=== PATIENT | female | born 1995 | race Caucasian/White ===

== ENCOUNTER 2017-10-22 17:52 | Emergency (ER) | payer BC ==
[2017-10-22 19:29] LABS: CHLORIDE,CL 107 mmol/L (98-110); SODIUM,NA 138 mmol/L (136-146)
--- NOTE | 2017-10-22 20:34 | EDM.PDOC ---
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 Past medical history: As per history of present illness and as reviewed below otherwise noncontributory. Surgical history: As per history of present illness and as reviewed below otherwise noncontributory. Social history: No reported history of drug or alcohol abuse. Family history: As per history of present illness and as reviewed below otherwise noncontributory. Physical exam: alert and oriented female answering questions HEENT: Atraumatic, normocehpalic, pupils reactive, negative for conjunctival pallor or scleral icterus, mucous membranes moist, throat clear, neck supple, nontender, trachea midline. Lungs: Clear to auscultation, breath sounds equal bilaterally, chest non tender. Heart: S1S2, regular, negative for clicks, rubs, or JVD. Abdomen: Soft, nondistended, nontender. Negative for masses or hepatossplenmegaly. Negative for costovertebral tenderness. Pelvis: Stable nontender. Genitourinary: Deferred. Rectal: Deferred Extremities: Atraumatic, negative for cords or calf pain. Neurovascular unremarkable. Neuro: Awake, alert, oriented. Cranial nerves II through XII unremarkable. Cerebellum unremarkable. Motor and sensory unremarkable throughout. Exam nonfocal. Discussed the results with the patient Diagnostics: []Ultrasound, CBC, ABO Rh Therapeutics: [] Impression: [Viable ] Plan: [Discharged to home Symptomatic cares reviewed ABO Rh is B+] Follow-up with your primary care provider establish with your CHASER APPRENTICE Definitive disposition and diagnosis as appropriate pending reevaluation and review of above. Onset: Today, Sudden Duration: Hour(s): Location: Reports: Pelvis - Related Data Allergies Allergy/AdvReac Type Severity Reaction Status Date / Time No Known Allergies Allergy Verified 10/22/17 18:26 Home Meds: Home Meds . [No Known Home Meds] 10/22/17 [History] Past Medical History - Past Health History Medical/Surgical History: Denies Medical/Surgical History Social & Family History - Tobacco Use Smoking Status *Q: Never Smoker Second Hand Smoke Exposure: No - Caffeine Use Caffeine Use: Reports: Soda, Tea - Recreational Drug Use Recreational Drug Use: No ED ROS GENERAL - Review of Systems Review Of Systems: ROS reveals no pertinent complaints other than HPI. ED EXAM - Physical Exam Exam: See Below (See dictation) Course - Vital Signs Last Recorded V/S: Last Vital Signs Temp 36.3 C 10/22/17 18:31 Pulse 100 10/22/17 18:31 Resp 18 10/22/17 18:31 BP 119/56 L 10/22/17 18:31 Pulse Ox 100 10/22/17 18:31 - Orders/Labs/Meds Orders: Active Orders 24 hr Category Date Time Status OB Transvaginal [US] Stat Exams 10/22/17 18:38 Taken Labs: Laboratory Tests 10/22/17 10/22/17 10/22/17 Range/Units 18:55 18:55 18:55 WBC 11.42 H (4.0-11.0) K/uL RBC 4.40 (4.30-5.90) M/uL Hgb 13.4 (12.0-16.0) g/dL Hct 39.0 (36.0-46.0) % MCV 88.6 (80.0-98.0) fL MCH 30.5 (27.0-32.0) pg MCHC 34.4 (31.0-37.0) g/dL RDW Std Deviation 39.8 (28.0-62.0) fl RDW Coeff of Avi 12 (11.0-15.0) % Plt Count 241 (150-400) K/uL MPV 9.40 (7.40-12.00) fL Neut % (Auto) 76.6 (48.0-80.0) % Lymph % (Auto) 17.5 (16.0-40.0) % [place] % (Auto) 4.8 (0.0-15.0) % Eos % (Auto) 0.7 (0.0-7.0) % Baso % (Auto) 0.4 (0.0-1.5) % Neut # (Auto) 8.7 H (1.4-5.7) K/uL Lymph # (Auto) 2.0 (0.6-2.4) K/uL [place] # (Auto) 0.6 (0.0-0.8) K/uL Eos # (Auto) 0.1 (0.0-0.7) K/uL Baso # (Auto) 0.1 (0.0-0.1) K/uL Nucleated RBC % 0.0 /100WBC Nucleated RBCs # 0 K/uL Sodium 138 (136-146) mmol/L Potassium 3.7 (3.5-5.1) mmol/L Chloride 107 (98-110) mmol/L Carbon Dioxide 21 (21-31) mmol/L BUN 9 (6.0-23.0) mg/dL Creatinine 0.7 (0.6-1.5) mg/dL Est Cr Clr Drug Dosing 101.39 mL/min Estimated GFR (MDRD) > 60.0 ml/min Glucose 78 (60-110) mg/dL Calcium 9.5 (8.8-10.8) mg/dL Total Bilirubin 0.4 (0.1-1.5) mg/dL AST 17 (5-40) IU/L ALT 12 (8-54) IU/L Alkaline Phosphatase 50 (40-150) Total Protein 7.8 (6.0-8.0) g/dL Albumin 4.9 (3.5-5.0) g/dL Globulin 2.9 (2.0-3.5) g/dL Albumin/Globulin Ratio 1.7 (1.3-2.8) HCG, Quant 48857.3 mIU/mL Urine Color Urine Appearance Urine pH (5.0-8.0) Ur Specific [place] (1.001-1.035) Urine Protein (NEGATIVE) mg/dL Urine Glucose (UA) (NEGATIVE) mg/dL Urine Ketones (NEGATIVE) mg/dL Urine Occult Blood (NEGATIVE) Urine Nitrite (NEGATIVE) Urine Bilirubin (NEGATIVE) Urine Urobilinogen (<2.0) EU/dL Ur Leukocyte Esterase (NEGATIVE) Urine RBC (0-2/HPF) Urine WBC (0-5/HPF) Ur Epithelial Cells (NONE-FEW) Urine Bacteria (NEGATIVE) Blood Type B POSITIVE 10/22/17 Range/Units 19:13 WBC (4.0-11.0) K/uL RBC (4.30-5.90) M/uL Hgb (12.0-16.0) g/dL Hct (36.0-46.0) % MCV (80.0-98.0) fL MCH (27.0-32.0) pg MCHC (31.0-37.0) g/dL RDW Std Deviation (28.0-62.0) fl RDW Coeff of Avi (11.0-15.0) % Plt Count (150-400) K/uL MPV (7.40-12.00) fL Neut % (Auto) (48.0-80.0) % Lymph % (Auto) (16.0-40.0) % [place] % (Auto) (0.0-15.0) % Eos % (Auto) (0.0-7.0) % Baso % (Auto) (0.0-1.5) % Neut # (Auto) (1.4-5.7) K/uL Lymph # (Auto) (0.6-2.4) K/uL [place] # (Auto) (0.0-0.8) K/uL Eos # (Auto) (0.0-0.7) K/uL Baso # (Auto) (0.0-0.1) K/uL Nucleated RBC % /100WBC Nucleated RBCs # K/uL Sodium (136-146) mmol/L Potassium (3.5-5.1) mmol/L Chloride (98-110) mmol/L Carbon Dioxide (21-31) mmol/L BUN (6.0-23.0) mg/dL Creatinine (0.6-1.5) mg/dL Est Cr Clr Drug Dosing mL/min Estimated GFR (MDRD) ml/min Glucose (60-110) mg/dL Calcium (8.8-10.8) mg/dL Total Bilirubin (0.1-1.5) mg/dL AST (5-40) IU/L ALT (8-54) IU/L Alkaline Phosphatase (40-150) Total Protein (6.0-8.0) g/dL Albumin (3.5-5.0) g/dL Globulin (2.0-3.5) g/dL Albumin/Globulin Ratio (1.3-2.8) HCG, Quant mIU/mL Urine Color YELLOW Urine Appearance CLEAR Urine pH 7.0 (5.0-8.0) Ur Specific [place] 1.020 (1.001-1.035) Urine Protein NEGATIVE (NEGATIVE) mg/dL Urine Glucose (UA) NEGATIVE (NEGATIVE) mg/dL Urine Ketones NEGATIVE (NEGATIVE) mg/dL Urine Occult Blood MODERATE (NEGATIVE) Urine Nitrite NEGATIVE (NEGATIVE) Urine Bilirubin NEGATIVE (NEGATIVE) Urine Urobilinogen 0.2 (<2.0) EU/dL Ur Leukocyte Esterase NEGATIVE (NEGATIVE) Urine RBC 0-1 (0-2/HPF) Urine WBC 0-1 (0-5/HPF) Ur Epithelial Cells OCCASIONAL (NONE-FEW) Urine Bacteria RARE (NEGATIVE) Blood Type Departure - Departure Time of Disposition: 20:36 Disposition: Home, Self-Care 01 Condition: Good Clinical Impression: Intrauterine - Discharge Information Referrals: Ashia Jacinto CNM [Primary Care Provider] - Forms: ED Department Discharge Additional Instructions: The following information is given to patients seen in the emergency department who are being discharged to home. This information is to outline your options for follow-up care. We provide all patients seen in our emergency department with a follow-up referral. The need for follow-up, as well as the timing and circumstances, are variable depending upon the specifics of your emergency department visit. If you don't have a primary care physician on staff, we will provide you with a referral. We always advise you to contact your personal physician following an emergency department visit to inform them of the circumstance of the visit and for follow-up with them and/or the need for any referrals to a consulting specialist. The emergency department will also refer you to a specialist when appropriate. This referral assures that you have the opportunity for followup care with a specialist. All of these measure are taken in an effort to provide you with optimal care, which includes your followup. Under all circumstances we always encourage you to contact your private physician who remains a resource for coordinating your care. When calling for followup care, please make the office aware that this follow-up is from your recent emergency room visit. If for any reason you are refused follow-up, please contact the [facility] emergency department at and asked to speak to the emergency department charge nurse. SHe has a viable uterine at this time YUN 05/24/18 Displacing you at 8 weeks and 3 days into your Please establish with your primary care provider and CHASER APPRENTICE for further cares Continue with your vitamins - My Orders Last 24 Hours: My Active Orders 10/22/17 18:38 OB Transvaginal [US] Stat - Assessment/Plan Last 24 Hours: My Active Orders 10/22/17 18:38 OB Transvaginal [US] Stat
--- NOTE | 2017-10-24 15:40 | US ---
EXAM DATE: 10/22/17 PATIENT'S AGE: 22 Patient: MAGNO CONWAY Facility: [place], [place] Site . Site : 1995 Study: US OB Pelvis [id number]/22/2017 7:54:15 PM Ordering Physician: Doctor Orr Final Report: INDICATION: Early , vaginal bleeding. TECHNIQUE: Ultrasound OB pelvis transvaginal. Real time guzman scale imaging of the pelvis was performed. COMPARISON: None FINDINGS: Sonographic imaging demonstrates a single intrauterine gestation. The embryo demonstrates a regular cardiac rate measuring 184 beats per minute. The embryo` s crown rump length measurement of 25.6 mm corresponds to a gestational age of 9 weeks 3 days. Yolk sac is not identified. Subchorionic hemorrhage, measuring 2.7 x 1.6 centimeters. The cervix is closed. Bilateral anechoic ovarian cysts. Largest left ovarian cyst measures 6.3 centimeters. Right ovarian cyst measures 3.1 centimeters. IMPRESSION: 1. Single viable intrauterine with an estimated gestational age of 9 weeks 3 days. Current ultrasound YUN 05/24/2018. 2. Subchorionic hemorrhage in the lower uterine segment near the internal os, measuring 2.7 centimeters. 3. Bilateral simple ovarian cysts. Largest cyst within the left ovary, measuring 6.3 centimeters. 4. No significant free pelvic fluid. Dictated by Elliott Jara MD @ 10/22/2017 8:28:16 PM Dictated by: Elliott Jara MD @ 10/22/2017 20:28:25 (Electronic Signature) Report Signed by Proxy. [facility]
== END 2017-10-22 20:55 | disposition home or self-care (01) ==
LOC: MW.ED 17:52
DX: O20.9 Hemorrhage in early pregnancy, unspecified (principal); Z3A.09 9 weeks gestation of pregnancy
CPT/HCPCS: 36415; 76817; 76817-26; 80053; 81001; 84702; 85025; 86900; 86901; 99283; 99284-25

== ENCOUNTER 2017-10-29 21:40 | Emergency (ER) | payer BC ==
--- NOTE | 2017-10-29 22:03 | EDM.PDOC ---
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 Past medical history: As per history of present illness and as reviewed below otherwise noncontributory. Surgical history: As per history of present illness and as reviewed below otherwise noncontributory. Social history: No reported history of drug or alcohol abuse. Family history: As per history of present illness and as reviewed below otherwise noncontributory. Physical exam: HEENT: Atraumatic, normocephalic, pupils reactive, negative for conjunctival pallor or scleral icterus, mucous membranes moist, throat clear, neck supple, nontender, trachea midline. Lungs: Clear to auscultation, breath sounds equal bilaterally, chest nontender. Heart: S1S2, regular, negative for clicks, rubs, or JVD. Abdomen: Soft, nondistended, nontender. Negative for masses or hepatosplenomegaly. Negative for costovertebral tenderness. Pelvis: Stable nontender. Genitourinary: Deferred. Rectal: Deferred. Extremities: Atraumatic, negative for cords or calf pain. Neurovascular unremarkable. Neuro: Awake, alert, oriented. Cranial nerves II through XII unremarkable. Cerebellum unremarkable. Motor and sensory unremarkable throughout. Exam nonfocal. Diagnostics: CBC quantitative beta-hCG Therapeutics: None Impression: #1 first trimester bleeding Definitive disposition and diagnosis as appropriate pending reevaluation and review of above. - Related Data Allergies Allergy/AdvReac Type Severity Reaction Status Date / Time No Known Allergies Allergy Verified 10/29/17 21:57 Home Meds: Home Meds #103/Iron Fumarate/Fa [ ] 1 tab PO DAILY 10/29/17 [ History] Past Medical History - Past Health History Medical/Surgical History: Denies Medical/Surgical History Social & Family History - Tobacco Use Smoking Status *Q: Never Smoker Second Hand Smoke Exposure: No - Caffeine Use Caffeine Use: Reports: Soda, Tea - Recreational Drug Use Recreational Drug Use: No ED ROS GENERAL - Review of Systems Review Of Systems: ROS reveals no pertinent complaints other than HPI. ED EXAM, GENERAL - Physical Exam Exam: See Below (dictation) Course - Vital Signs Last Recorded V/S: Last Vital Signs Temp 37.7 C 10/29/17 21:40 Pulse 116 H 10/29/17 21:40 Resp 18 10/29/17 21:40 BP 119/70 10/29/17 21:40 Pulse Ox 100 10/29/17 21:40 - Orders/Labs/Meds Labs: Laboratory Tests 10/29/17 10/29/17 Range/Units 22:11 22:11 WBC 8.31 (4.0-11.0) K/uL RBC 4.20 L (4.30-5.90) M/uL Hgb 12.8 (12.0-16.0) g/dL Hct 36.7 (36.0-46.0) % MCV 87.4 (80.0-98.0) fL MCH 30.5 (27.0-32.0) pg MCHC 34.9 (31.0-37.0) g/dL RDW Std Deviation 39.6 (28.0-62.0) fl RDW Coeff of Avi 12 (11.0-15.0) % Plt Count 211 (150-400) K/uL MPV 9.70 (7.40-12.00) fL Neut % (Auto) 67.4 (48.0-80.0) % Lymph % (Auto) 26.6 (16.0-40.0) % [place] % (Auto) 4.2 (0.0-15.0) % Eos % (Auto) 1.4 (0.0-7.0) % Baso % (Auto) 0.4 (0.0-1.5) % Neut # (Auto) 5.6 (1.4-5.7) K/uL Lymph # (Auto) 2.2 (0.6-2.4) K/uL [place] # (Auto) 0.4 (0.0-0.8) K/uL Eos # (Auto) 0.1 (0.0-0.7) K/uL Baso # (Auto) 0.0 (0.0-0.1) K/uL Nucleated RBC % 0.0 /100WBC Nucleated RBCs # 0 K/uL HCG, Quant 384193.4 mIU/mL Departure - Departure Time of Disposition: 23:05 Disposition: Home, Self-Care 01 Condition: Good Clinical Impression: Threatened - Discharge Information Referrals: Ashia Jacinto CNM [Primary Care Provider] - Forms: ED Department Discharge Additional Instructions: The following information is given to patients seen in the emergency department who are being discharged to home. This information is to outline your options for follow-up care. We provide all patients seen in our emergency department with a follow-up referral. The need for follow-up, as well as the timing and circumstances, are variable depending upon the specifics of your emergency department visit. If you don't have a primary care physician on staff, we will provide you with a referral. We always advise you to contact your personal physician following an emergency department visit to inform them of the circumstance of the visit and for follow-up with them and/or the need for any referrals to a consulting specialist. The emergency department will also refer you to a specialist when appropriate. This referral assures that you have the opportunity for followup care with a specialist. All of these measure are taken in an effort to provide you with optimal care, which includes your followup. Under all circumstances we always encourage you to contact your private physician who remains a resource for coordinating your care. When calling for followup care, please make the office aware that this follow-up is from your recent emergency room visit. If for any reason you are refused follow-up, please contact the [facility] emergency department at and asked to speak to the emergency department charge nurse. Vaginal rest follow-up TRANSITIONS RN CARE COORDINATOR: Schedule appointment return as needed as discussed
== END 2017-10-29 23:26 | disposition home or self-care (01) ==
LOC: MW.ED 21:40
DX: O20.0 Threatened abortion (principal)
CPT/HCPCS: 36415; 84702; 85025; 99282; 99283

== ENCOUNTER 2020-02-01 00:10 | Inpatient (IN) | payer BC ==
[2020-02-01] MEDS ORDERED: Sodium Chloride 0.9% 2.5 ML Syringe FLUSH PRN (00:20)
[2020-02-01] MEDS ORDERED: Terbutaline 1 MG/ML SDV SUBCUT PRN (00:20)
[2020-02-01] MEDS ORDERED: Carboprost Tromethamine 250 MCG/1 ML Amp IM PRN (00:20)
[2020-02-01] MEDS ORDERED: Misoprostol 25 MCG (1/4 of 100 MCG) Tab VAG PRN (00:20)
[2020-02-01] MEDS ORDERED: Butorphanol 1 MG/ML SDV IVPUSH PRN (00:20)
[2020-02-01] MEDS ORDERED: Methylergonovine 0.2 MG/1 ML Amp IM PRN (00:20)
[2020-02-01] MEDS ORDERED: Tranexamic Acid 1,000 MG in Sodium Chloride 0.9% 100 ML IV PRN (00:20)
[2020-02-01] MEDS ORDERED: Lidocaine 1% 50 ML MDV INJECT PRN (00:20)
[2020-02-01] MEDS ORDERED: Nalbuphine 10 MG/1 ML Vial IVPUSH PRN (00:20)
[2020-02-01] MEDS ORDERED: Sodium Chloride 0.9% 10 ML Syringe FLUSH PRN (00:20)
[2020-02-01] MEDS ORDERED: Ondansetron 4 MG/2 ML SDV IVPUSH PRN (00:20)
[2020-02-01] MEDS ORDERED: Sodium Chloride 0.9% 10 ML SDV IV PRN (00:20)
[2020-02-01] MEDS ORDERED: Misoprostol 200 MCG Tab PO PRN (00:20)
[2020-02-01] MEDS ORDERED: Misoprostol 25 MCG (1/4 of 100 MCG) Tab PO PRN ×2 (00:20)
[2020-02-01] MEDS ORDERED: Water For Irrigation,Sterile 1,000 ML Container IRR PRN (00:20)
[2020-02-01] MEDS ORDERED: Oxytocin/0.9 % Sodium Chloride 30 UNIT/500 ML BAG IV SCH ×2 (00:30)
[2020-02-01] MEDS: Misoprostol 25 MCG (1/4 of 100 MCG) Tab VAG PRN ×2 (01:28→05:33)
[2020-02-01] MEDS: Lactated Ringers 1,000 ML IV SCH ×2 (06:10→12:51)
--- NOTE | 2020-02-01 08:55 | PCM.LDHP ---
L&D History of Present Illness - General Date of Service: 02/01/20 Admit Problem/Dx: Patient Status Order with Admit Dx/Problem 02/01/20 00:21 Patient Status [ADT] Routine Admission Diagnosis/Problem Admission Diagnosis/Problem Arcelia is a 24 yo that presents today for IOL at 39.5 weeks gestation. B pos, RI, GBS negative. NKDA. Source of Information: Patient History Limitations: Reports: No Limitations - History of Present Illness Associated Symptoms: Reports: N - Related Data Allergies/Adverse Reactions: Allergies Allergy/AdvReac Type Severity Reaction Status Date / Time No Known Allergies Allergy Verified 02/01/20 01:10 Home Medications: Home Meds #103/Iron Fumarate/Fa [ ] 1 tab PO DAILY 10/29/17 [ History] Past Medical History - Past Health History Medical/Surgical History: Denies Medical/Surgical History HEENT History: Reports: None Cardiovascular History: Reports: None Respiratory History: Reports: None Gastrointestinal History: Reports: None Genitourinary History: Reports: None 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: , Spontaneous : 3 Para: 0 LMP (Approximate): > 3 Months Musculoskeletal History: Reports: None Neurological History: Reports: None Psychiatric History: Reports: None Endocrine/Metabolic History: Reports: None Hematologic History: Reports: None Immunologic History: Reports: None Dermatologic History: Reports: None - Infectious Disease History Infectious Disease History: Reports: None - Past Surgical History Female Surgical History: Reports: Other (See Below) (Ovarian cyst removal ( 2013)) Social & Family History - Family History Family Medical History: Noncontributory - Tobacco Use Smoking Status *Q: Never Smoker Second Hand Smoke Exposure: No - Caffeine Use Caffeine Use: Reports: Soda, Tea - Recreational Drug Use Recreational Drug Use: No H&P Review of Systems - Review of Systems: Review Of Systems: Comprehensive ROS is negative, except as noted in HPI. General: Reports: No Symptoms HEENT: Reports: No Symptoms Pulmonary: Reports: No Symptoms Cardiovascular: Reports: No Symptoms Gastrointestinal: Reports: No Symptoms Genitourinary: Reports: No Symptoms Musculoskeletal: Reports: No Symptoms Skin: Reports: No Symptoms Psychiatric: Reports: No Symptoms Neurological: Reports: No Symptoms Hematologic/Lymphatic: Reports: No Symptoms Immunologic: Reports: No Symptoms L&D Exam - Exam Exam: See Below - Vital Signs Weight: 172 lb - OB Specific Fundal Height In cm: 39 Movement: Active Heart Tones: Present Heart Tones per Min: 115 Heart Rate (FHR) Variability: Moderate (6-25 bmp) Presentation: Vertex - Eldridge Score Eldridge Score Effacement: 31-50% Eldridge Score Dilation: 1-2 cm Eldridge Score 's Station: -3 - Exam General: Alert, Oriented HEENT: Conjunctiva Clear, EACs Clear, EOMI, Hearing Intact, Mucosa Moist & [place] , Nares Patent, PERRLA Neck: Supple, Trachea Midline Lungs: Clear to Auscultation, Normal Respiratory Effort Cardiovascular: Regular Rate, Regular Rhythm GI/Abdominal Exam: Normal Bowel Sounds, Soft, Non-Tender, No Organomegaly, No Distention, Other (Gravid uterus) Rectal Exam: Deferred Genitourinary: Normal external exam, Other (Amniotic membranes intact) Back Exam: Normal Inspection, Full Range of Motion Extremities: Normal Inspection, Normal Range of Motion, Non-Tender, No Pedal Edema, Normal Capillary Refill Skin: Warm, Dry, Intact Neurological: Cranial Nerves Intact, Reflexes Equal Bilateral Psychiatric: Alert, Normal Affect, Normal Mood - Patient Data Lab Results Last 24 hrs: Laboratory Results - last 24 hr 02/01/20 02/01/20 Range/Units 00:55 00:55 WBC 10.36 (4.0-11.0) K/uL RBC 4.08 L (4.30-5.90) M/uL Hgb 11.5 L (12.0-16.0) g/dL Hct 35.1 L (36.0-46.0) % MCV 86.0 (80.0-98.0) fL MCH 28.2 (27.0-32.0) pg MCHC 32.8 (31.0-37.0) g/dL RDW Std Deviation 41.7 (28.0-62.0) fl RDW Coeff of Avi 14 (11.0-15.0) % Plt Count 261 (150-400) K/uL MPV 10.60 (7.40-12.00) fL Blood Type B POSITIVE Antibody Screen NEGATIVE Result Diagrams: 02/01/20 00:55 - Problem List (1) Elective induction of labor planned SNOMED Code(s): 058345954 ICD Code: [id number] - Status: Acute Priority: High Current Visit: Yes (2) related condition in third trimester SNOMED Code(s): 524975691 ICD Code: O26.93 - RELATED CONDITIONS, UNSPECIFIED, THIRD TRIMESTER Status: Acute Priority: High Current Visit: Yes (3) 39 weeks gestation of SNOMED Code(s): 11912871 ICD Code: Z3A.39 - 39 WEEKS GESTATION OF Status: Acute Priority : High Current Visit: Yes Problem List Initiated/Reviewed/Updated: Yes Orders Last 24hrs: Active Orders 24 hr Category Date Time Status Patient Status [ADT] Routine ADT 02/01/20 00:21 Active Bedrest Bathroom Privileges [RC] ASDIRECTED Care 02/01/20 00:21 Active Communication Order [RC] ASDIRECTED Care 02/01/20 00:21 Active Communication Order [RC] ASDIRECTED Care 02/01/20 00:21 Active Communication Order [RC] ASDIRECTED Care 02/01/20 00:21 Active Heart Tones [RC] CONTINUOUS Care 02/01/20 00:21 Active Non Stress Test [RC] PER UNIT ROUTINE Care 02/01/20 00:21 Active May Shower [RC] ASDIRECTED Care 02/01/20 00:21 Active Notify Provider [RC] PRN Care 02/01/20 00:21 Active Notify Provider [RC] PRN Care 02/01/20 00:21 Active Notify Provider [RC] PRN Care 02/01/20 00:21 Active Notify Provider [RC] STAT Care 02/01/20 00:21 Active Oxygen Therapy [RC] ASDIRECTED Care 02/01/20 00:21 Active Up ad Lola [RC] ASDIRECTED Care 02/01/20 00:21 Active Vaginal Exam [RC] PRN Care 02/01/20 00:21 Active Vaginal Exam [RC] PRN Care 02/01/20 00:21 Active Vital Signs [RC] PER UNIT ROUTINE Care 02/01/20 00:21 Active Vital Signs [RC] PER UNIT ROUTINE Care 02/01/20 00:21 Active Regular Diet [DIET] Diet 02/01/20 Breakfast Active RPR (SYPHILIS SERO) W/ RFLX [REF] Routine Lab 02/01/20 00:55 Received Butorphanol [Stadol] Med 02/01/20 00:20 Active 1 mg IVPUSH Q1H PRN Carboprost Tromethamine [Hemabate DS] Med 02/01/20 00:20 Active 250 mcg IM ASDIRECTED PRN Lactated Ringers [Ringers, Lactated] 1,000 ml Med 02/01/20 00:30 Active IV ASDIRECTED Lidocaine 1% [Xylocaine 1%] Med 02/01/20 00:20 Active 50 ml INJECT ONETIME PRN Methylergonovine [Methergine] Med 02/01/20 00:20 Active 0.2 mg IM ASDIRECTED PRN Nalbuphine [Nubain] Med 02/01/20 00:20 Active 10 mg IVPUSH Q1H PRN Ondansetron [Zofran] Med 02/01/20 00:20 Active 4 mg IVPUSH Q4H PRN Oxytocin/0.9 % Sodium Chloride [Oxytocin 30 Unit/500 ML Med 02/01/20 00:30 Active -NS] 30 unit in 500 ml IV TITRATE Oxytocin/0.9 % Sodium Chloride [Oxytocin 30 Unit/500 ML Med 02/01/20 00:30 Active -NS] 30 unit in 500 ml IV TITRATE Sodium Chloride 0.9% [Normal Saline] Med 02/01/20 00:20 Active 10 ml IV ASDIRECTED PRN Sodium Chloride 0.9% [Saline Flush] Med 02/01/20 00:20 Active 10 ml FLUSH ASDIRECTED PRN Sodium Chloride 0.9% [Saline Flush] Med 02/01/20 00:20 Active 2.5 ml FLUSH ASDIRECTED PRN Terbutaline [Brethine] Med 02/01/20 00:20 Active 0.25 mg SUBCUT ASDIRECTED PRN Tranexamic Acid [Cyklokapron] 1,000 mg Med 02/01/20 00:20 Active Sodium Chloride 0.9% [Normal Saline] 100 ml IV ONETIME Water For Irrigation,Sterile [Sterile Water for Med 02/01/20 00:20 Active Irrigation] 1,000 ml IRR ASDIRECTED PRN miSOPROStoL [Cytotec] Med 02/01/20 00:20 Active 200 mcg PO ONETIME PRN miSOPROStoL [Cytotec] Med 02/01/20 00:20 Active 25 mcg PO ONETIME PRN miSOPROStoL [Cytotec] Med 02/01/20 00:20 Active 25 mcg PO Q4H PRN miSOPROStoL [Cytotec] Med 02/01/20 00:20 Active 25 mcg VAG ONETIME PRN miSOPROStoL [Cytotec] Med 02/01/20 00:20 Active 25 mcg VAG Q4H PRN Scalp Electrode [WOMSER] Per Unit Routine Oth 02/01/20 00:21 Ordered Medication Administration Instruction [OM.PC] Q3H Oth 02/01/20 00:30 Ordered Peripheral IV Insertion Adult [OM.PC] Routine Oth 02/01/20 00:21 Ordered Resuscitation Status Routine Resus Stat 02/01/20 00:20 Ordered Medication Orders Butorphanol Tartrate (Stadol) 1 mg IVPUSH Q1H PRN PRN Reason: Pain Carboprost Tromethamine (Hemabate Ds) 250 mcg IM ASDIRECTED PRN PRN Reason: Post Hemorrhage Lactated Ringer's (Ringers, Lactated) 1,000 mls @ 150 mls/hr IV ASDIRECTED DAVON Last Admin: 02/01/20 06:10 Dose: 150 mls/hr Oxytocin/Sodium Chloride (Oxytocin 30 Unit/500 Ml-Ns) 30 unit in 500 mls @ 2 mls/hr IV TITRATE DAVON; Protocol Oxytocin/Sodium Chloride (Oxytocin 30 Unit/500 Ml-Ns) 30 unit in 500 mls @ 555 mls/hr IV TITRATE DAVON Tranexamic Acid 1,000 mg/ (Sodium Chloride) 110 mls @ 660 mls/hr IV ONETIME PRN PRN Reason: Bleeding Lidocaine HCl (Xylocaine 1%) 50 ml INJECT ONETIME PRN PRN Reason: Laceration repair Methylergonovine Maleate (Methergine) 0.2 mg IM ASDIRECTED PRN PRN Reason: Post Hemorrhage Misoprostol (Cytotec) 25 mcg VAG ONETIME PRN PRN Reason: Cervical Ripening Misoprostol (Cytotec) 25 mcg VAG Q4H PRN PRN Reason: Cervical Ripening Last Admin: 02/01/20 05:33 Dose: 25 mcg Admin: 02/01/20 01:28 Dose: 25 mcg Misoprostol (Cytotec) 200 mcg PO ONETIME PRN PRN Reason: Post Hemorrhage Misoprostol (Cytotec) 25 mcg PO ONETIME PRN PRN Reason: Cervical Ripening Last Admin: 02/01/20 01:28 Dose: 25 mcg Misoprostol (Cytotec) 25 mcg PO Q4H PRN PRN Reason: Cervical Ripening Last Admin: 02/01/20 05:33 Dose: 25 mcg Nalbuphine HCl (Nubain) 10 mg IVPUSH Q1H PRN PRN Reason: Pain (severe 7-10) Ondansetron HCl (Zofran) 4 mg IVPUSH Q4H PRN PRN Reason: Nausea/Vomiting Sodium Chloride (Saline Flush) 10 ml FLUSH ASDIRECTED PRN PRN Reason: Keep Vein Open Sodium Chloride (Saline Flush) 2.5 ml FLUSH ASDIRECTED PRN PRN Reason: Keep Vein Open Sodium Chloride (Normal Saline) 10 ml IV ASDIRECTED PRN PRN Reason: IV Use Sterile Water (Sterile Water For Irrigation) 1,000 ml IRR ASDIRECTED PRN PRN Reason: delivery Terbutaline Sulfate (Brethine) 0.25 mg SUBCUT ASDIRECTED PRN PRN Reason: Tacysystole Assessment/Plan Comment:: Continue with cytotec to pitocin IOL POC.
[2020-02-01] MEDS ORDERED: fentaNYL 100 MCG/2 ML SDV ONE (11:41)
[2020-02-01] MEDS ORDERED: Bupivicaine/fentaNYL/NS 250 ML ONE (11:42)
[2020-02-01] MEDS ORDERED: Bupivacaine 0.25% 10 ML SDV ONE (11:43)
--- NOTE | 2020-02-01 12:15 | PCM.PREANE ---
Preanesthetic Assessment - Anesthesia/Transfusion/Family Hx Anesthesia History: No Prior Anesthesia Family History of Anesthesia Reaction: No Transfusion History: No Prior Transfusion(s) - Review of Systems General: No Symptoms Pulmonary: No Symptoms Cardiovascular: No Symptoms Gastrointestinal: Abdominal Pain Neurological: No Symptoms Other: Reports: None - Physical Assessment Height: 5 ft 1.81 in Weight: 78.018 kg ASA Class: 2 Mental Status: Alert & Oriented x3 Airway Class: Mallampati = 2 Dentition: Reports: Normal Dentition Cardiovascular: Regular Rate - Lab Values: Laboratory Last Values WBC 10.36 K/uL (4.0-11.0) 02/01/20 00:55 RBC 4.08 M/uL (4.30-5.90) L 02/01/20 00:55 Hgb 11.5 g/dL (12.0-16.0) L 02/01/20 00:55 Hct 35.1 % (36.0-46.0) L 02/01/20 00:55 MCV 86.0 fL (80.0-98.0) 02/01/20 00:55 MCH 28.2 pg (27.0-32.0) 02/01/20 00:55 MCHC 32.8 g/dL (31.0-37.0) 02/01/20 00:55 RDW Std Deviation 41.7 fl (28.0-62.0) 02/01/20 00:55 RDW Coeff of Avi 14 % (11.0-15.0) 02/01/20 00:55 Plt Count 261 K/uL (150-400) 02/01/20 00:55 MPV 10.60 fL (7.40-12.00) 02/01/20 00:55 Blood Type B POSITIVE 02/01/20 00:55 Antibody Screen NEGATIVE 02/01/20 00:55 - Allergies Allergies/Adverse Reactions: Allergies Allergy/AdvReac Type Severity Reaction Status Date / Time No Known Allergies Allergy Verified 02/01/20 01:10 - Blood Blood Available: No - Anesthesia Plan Pre-Op Medication Ordered: None - Acknowledgements Anesthesia Type Planned: Epidural Pt an Appropriate Candidate for the Planned Anesthesia: Yes Alternatives and Risks of Anesthesia Discussed w Pt/Guardian: Yes Pt/Guardian Understands and Agrees with Anesthesia Plan: Yes PreAnesthesia Questionnaire - Past Health History Medical/Surgical History: Denies Medical/Surgical History HEENT History: Reports: None Cardiovascular History: Reports: None Respiratory History: Reports: None Gastrointestinal History: Reports: None Genitourinary History: Reports: None 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: , 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 Musculoskeletal History: Reports: None Neurological History: Reports: None Psychiatric History: Reports: None Endocrine/Metabolic History: Reports: None Hematologic History: Reports: None Immunologic History: Reports: None Dermatologic History: Reports: None - Infectious Disease History Infectious Disease History: Reports: None - Past Surgical History Female Surgical History: Reports: Other (See Below) (Ovarian cyst removal ( 2013)) - SUBSTANCE USE Smoking Status *Q: Never Smoker Second Hand Smoke Exposure: No Recreational Drug Use History: No - HOME MEDS Home Medications: Home Meds #103/Iron Fumarate/Fa [ ] 1 tab PO DAILY 10/29/17 [ History] - CURRENT (IN HOUSE) MEDS Current Meds: Current Medications Butorphanol Tartrate (Stadol) 1 mg IVPUSH Q1H PRN PRN Reason: Pain Last Admin: 02/01/20 11:03 Dose: 1 mg Carboprost Tromethamine (Hemabate Ds) 250 mcg IM ASDIRECTED PRN PRN Reason: Post Hemorrhage Lactated Ringer's (Ringers, Lactated) 1,000 mls @ 150 mls/hr IV ASDIRECTED DAVON Last Admin: 02/01/20 06:10 Dose: 150 mls/hr Oxytocin/Sodium Chloride (Oxytocin 30 Unit/500 Ml-Ns) 30 unit in 500 mls @ 2 mls/hr IV TITRATE DAVON; Protocol Oxytocin/Sodium Chloride (Oxytocin 30 Unit/500 Ml-Ns) 30 unit in 500 mls @ 555 mls/hr IV TITRATE DAVON Tranexamic Acid 1,000 mg/ (Sodium Chloride) 110 mls @ 660 mls/hr IV ONETIME PRN PRN Reason: Bleeding Lidocaine HCl (Xylocaine 1%) 50 ml INJECT ONETIME PRN PRN Reason: Laceration repair Methylergonovine Maleate (Methergine) 0.2 mg IM ASDIRECTED PRN PRN Reason: Post Hemorrhage Misoprostol (Cytotec) 25 mcg VAG ONETIME PRN PRN Reason: Cervical Ripening Misoprostol (Cytotec) 25 mcg VAG Q4H PRN PRN Reason: Cervical Ripening Last Admin: 02/01/20 05:33 Dose: 25 mcg Misoprostol (Cytotec) 200 mcg PO ONETIME PRN PRN Reason: Post Hemorrhage Misoprostol (Cytotec) 25 mcg PO ONETIME PRN PRN Reason: Cervical Ripening Last Admin: 02/01/20 01:28 Dose: 25 mcg Misoprostol (Cytotec) 25 mcg PO Q4H PRN PRN Reason: Cervical Ripening Last Admin: 02/01/20 05:33 Dose: 25 mcg Nalbuphine HCl (Nubain) 10 mg IVPUSH Q1H PRN PRN Reason: Pain (severe 7-10) Ondansetron HCl (Zofran) 4 mg IVPUSH Q4H PRN PRN Reason: Nausea/Vomiting Sodium Chloride (Saline Flush) 10 ml FLUSH ASDIRECTED PRN PRN Reason: Keep Vein Open Sodium Chloride (Saline Flush) 2.5 ml FLUSH ASDIRECTED PRN PRN Reason: Keep Vein Open Sodium Chloride (Normal Saline) 10 ml IV ASDIRECTED PRN PRN Reason: IV Use Sterile Water (Sterile Water For Irrigation) 1,000 ml IRR ASDIRECTED PRN PRN Reason: delivery Terbutaline Sulfate (Brethine) 0.25 mg SUBCUT ASDIRECTED PRN PRN Reason: Tacysystole Discontinued Medications Bupivacaine HCl (Sensorcaine-Mpf 0.25%) Confirm Administered Dose 10 ml .ROUTE .STK-MED ONE Stop: 02/01/20 11:44 Fentanyl (Sublimaze) Confirm Administered Dose 100 mcg .ROUTE .STK-MED ONE Stop: 02/01/20 11:42 Fentanyl/Bupivacaine HCl (Fentanyl/Bupivacaine/Ns 2 Mcg-0.125% 250 Ml) Confirm Administered Dose 250 mls @ as directed .ROUTE .STK-MED ONE Stop: 02/01/20 11:43
[2020-02-01] MEDS ORDERED: Witch Hazel Medicated Pads 40/Jar TOP PRN (14:57)
[2020-02-01] MEDS ORDERED: Acetaminophen 500 MG Tab PO PRN ×2 (14:57)
[2020-02-01] MEDS ORDERED: Bisacodyl 10 MG Supp RECTAL PRN (14:57)
[2020-02-01] MEDS ORDERED: Ibuprofen 800 MG Tab PO PRN (14:57)
[2020-02-01] MEDS ORDERED: Benzocaine/Menthol 20%-0.5% Spray 78 GM Cannister TOP PRN (14:57)
[2020-02-01] MEDS ORDERED: oxyCODONE 5 MG Tab PO PRN (14:57)
[2020-02-01] MEDS ORDERED: Ibuprofen 400 MG Tab PO PRN (14:57)
[2020-02-01] MEDS ORDERED: Lanolin 100% Cream 7 GM Tube TOP PRN (14:57)
[2020-02-01] MEDS ORDERED: Docusate Sodium 100 MG Cap PO PRN (14:57)
--- NOTE | 2020-02-02 07:27 | PCM48HPAN ---
Post Anesthesia Note - EVALUATION WITHIN 48HRS OF ANESTHETIC Vital Signs in Normal Range: Yes Patient Participated in Evaluation: Yes Respiratory Function Stable: Yes Airway Patent: Yes Cardiovascular Function Stable: Yes Hydration Status Stable: Yes Pain Control Satisfactory: Yes Nausea and Vomiting Control Satisfactory: Yes Mental Status Recovered: Yes Vital Signs: Last Vital Signs Temp 36.6 C 02/02/20 04:00 Pulse 91 02/02/20 04:00 Resp 16 02/02/20 04:00 BP 112/65 02/02/20 04:00 Pulse Ox 95 02/02/20 04:00 - COMMENTS/OBSERVATIONS Free Text/Narrative:: No problems post.
--- NOTE | 2020-02-02 09:01 | OR ---
SURGEON: Cade Ashford MD DATE OF PROCEDURE: 02/01/2020 DELIVERY NOTE: Ms. Paniagua is primigravida. She is 24. She is followed in our office primarily by me. The patient is 39 plus weeks. She was admitted at midnight of Saturday morning for elective induction. She was induced with Cytotec and she responded to it very well. She progressed to 4 to 5, and she had spontaneous rupture of the membranes with clear fluid, regular contraction every 3 to 4 minutes. heart rate was normal. The patient had epidural anesthesia for labor analgesia, and then she progressed without any problems. She was able to accomplish normal spontaneous vaginal delivery of a female fetus. One nuchal cord was noted. The fetus cried immediately. score reported to be 8 and 9. The weight is not available. There was no need for episiotomy. There was no perineal or labial laceration. The placenta delivered spontaneous, complete, and intact. Estimated blood loss 250 to 300 mL. There was no complication in the delivery or the labor process in this patient. ASHLEIGH / ELIZABETH /[id number]
--- NOTE | 2020-02-02 13:07 | PCM.PNPP ---
- General Info Date of Service: 02/02/20 Functional Status: Reports: Pain Controlled - Review of Systems General: Reports: No Symptoms HEENT: Reports: No Symptoms Pulmonary: Reports: No Symptoms Cardiovascular: Reports: No Symptoms Gastrointestinal: Reports: No Symptoms Genitourinary: Reports: No Symptoms Musculoskeletal: Reports: No Symptoms Skin: Reports: No Symptoms Neurological: Reports: No Symptoms Psychiatric: Reports: No Symptoms - General Info Date of Service: 02/02/20 - Patient Data Vital Signs - Most Recent: Last Vital Signs Temp 36.0 C L 02/02/20 08:05 Pulse 66 02/02/20 08:05 Resp 16 02/02/20 08:05 BP 103/60 02/02/20 08:05 Pulse Ox 97 02/02/20 08:05 Weight - Most Recent: 78.018 kg Lab Results - Last 24 Hours: Laboratory Results - last 24 hr 02/02/20 Range/Units 05:12 Hgb 9.3 L (12.0-16.0) g/dL Hct 29.3 L (36.0-46.0) % Med Orders - Current: Current Medications Acetaminophen (Tylenol Extra Strength) 500 mg PO Q4H PRN PRN Reason: Pain Acetaminophen (Tylenol Extra Strength) 1,000 mg PO Q4H PRN PRN Reason: Pain Benzocaine/Menthol (Dermoplast Pain Relief 20%-0.5% [place]) 78 gm TOP ASDIRECTED PRN PRN Reason: Perineal Comfort Measure Bisacodyl (Dulcolax) 10 mg RECTAL ONETIME PRN PRN Reason: Constipation Butorphanol Tartrate (Stadol) 1 mg IVPUSH Q1H PRN PRN Reason: Pain Last Admin: 02/01/20 11:03 Dose: 1 mg Carboprost Tromethamine (Hemabate Ds) 250 mcg IM ASDIRECTED PRN PRN Reason: Post Hemorrhage Docusate Sodium (Colace) 100 mg PO BID PRN PRN Reason: Constipation Emollient Ointment (Lansinoh Hpa) 0 gm TOP ASDIRECTED PRN PRN Reason: Sore Nipples Lactated Ringer's (Ringers, Lactated) 1,000 mls @ 150 mls/hr IV ASDIRECTED DAVON Last Admin: 02/01/20 12:51 Dose: 150 mls/hr Oxytocin/Sodium Chloride (Oxytocin 30 Unit/500 Ml-Ns) 30 unit in 500 mls @ 2 mls/hr IV TITRATE DAVON; Protocol Oxytocin/Sodium Chloride (Oxytocin 30 Unit/500 Ml-Ns) 30 unit in 500 mls @ 555 mls/hr IV TITRATE DAVON Last Admin: 02/01/20 15:03 Dose: 500 mls/hr Tranexamic Acid 1,000 mg/ (Sodium Chloride) 110 mls @ 660 mls/hr IV ONETIME PRN PRN Reason: Bleeding Ibuprofen (Motrin) 400 mg PO Q4H PRN PRN Reason: Pain Ibuprofen (Motrin) 800 mg PO Q6H PRN PRN Reason: Pain Last Admin: 02/02/20 04:42 Dose: 800 mg Lidocaine HCl (Xylocaine 1%) 50 ml INJECT ONETIME PRN PRN Reason: Laceration repair Methylergonovine Maleate (Methergine) 0.2 mg IM ASDIRECTED PRN PRN Reason: Post Hemorrhage Misoprostol (Cytotec) 25 mcg VAG ONETIME PRN PRN Reason: Cervical Ripening Misoprostol (Cytotec) 25 mcg VAG Q4H PRN PRN Reason: Cervical Ripening Last Admin: 02/01/20 05:33 Dose: 25 mcg Misoprostol (Cytotec) 200 mcg PO ONETIME PRN PRN Reason: Post Hemorrhage Misoprostol (Cytotec) 25 mcg PO ONETIME PRN PRN Reason: Cervical Ripening Last Admin: 02/01/20 01:28 Dose: 25 mcg Misoprostol (Cytotec) 25 mcg PO Q4H PRN PRN Reason: Cervical Ripening Last Admin: 02/01/20 05:33 Dose: 25 mcg Nalbuphine HCl (Nubain) 10 mg IVPUSH Q1H PRN PRN Reason: Pain (severe 7-10) Ondansetron HCl (Zofran) 4 mg IVPUSH Q4H PRN PRN Reason: Nausea/Vomiting Oxycodone HCl (Oxycodone) 5 mg PO Q2H PRN PRN Reason: Pain Sodium Chloride (Saline Flush) 10 ml FLUSH ASDIRECTED PRN PRN Reason: Keep Vein Open Sodium Chloride (Saline Flush) 2.5 ml FLUSH ASDIRECTED PRN PRN Reason: Keep Vein Open Sodium Chloride (Normal Saline) 10 ml IV ASDIRECTED PRN PRN Reason: IV Use Sterile Water (Sterile Water For Irrigation) 1,000 ml IRR ASDIRECTED PRN PRN Reason: delivery Terbutaline Sulfate (Brethine) 0.25 mg SUBCUT ASDIRECTED PRN PRN Reason: Tacysystole Witch Yared (Tucks) 1 pad TOP ASDIRECTED PRN PRN Reason: comfort care Discontinued Medications Bupivacaine HCl (Sensorcaine-Mpf 0.25%) Confirm Administered Dose 10 ml .ROUTE .STTelly-MED ONE Stop: 02/01/20 11:44 Last Admin: 02/01/20 19:31 Dose: Not Given Fentanyl (Sublimaze) Confirm Administered Dose 100 mcg .ROUTE .[place] ONE Stop: 02/01/20 11:42 Last Admin: 02/01/20 19:30 Dose: Not Given Fentanyl/Bupivacaine HCl (Fentanyl/Bupivacaine/Ns 2 Mcg-0.125% 250 Ml) Confirm Administered Dose 250 mls @ as directed .ROUTE .[place] ONE Stop: 02/01/20 11:43 Last Admin: 02/01/20 19:31 Dose: Not Given - Infant Interaction Disposition, : [place] in Room with Family Interaction: Holding Infant Infant Feeding: Attempted ; Nursed Fair/Poor Support Person: Significant Other - Recovery Exam Fundal Tone: Firm Fundal Level: 1 Fingerbreadths Below Umbilicus Fundal Placement: Midline Lochia Amount: Scant Lochia Color: Rubra/Red Perineum Description: Intact, Minimal Bruising/Swelling Episiotomy/Laceration: None Bladder Status: Voiding Urinary Elimination: Voided - Exam General: Alert, Oriented HEENT: Pupils Equal Neck: Supple Lungs: Clear to Auscultation, Normal Respiratory Effort Cardiovascular: Regular Rate, Regular Rhythm GI/Abdominal Exam: Normal Bowel Sounds, Soft, Non-Tender, No Organomegaly, No Distention, No Abnormal Bruit, No Mass, Pelvis Stable Extremities: Normal Inspection, Normal Range of Motion, Non-Tender, No Pedal Edema, Normal Capillary Refill Skin: Warm, Dry, Intact Wound/Incisions: Healing Well Neurological: No New Focal Deficit Psy/Mental Status: Alert, Normal Affect, Normal Mood - Problem List Review Problem List Initiated/Reviewed/Updated: Yes - My Orders Last 24 Hours: My Active Orders 02/01/20 14:57 Acetaminophen [Tylenol Extra Strength] 1,000 mg PO Q4H PRN Acetaminophen [Tylenol Extra Strength] 500 mg PO Q4H PRN Benzocaine/Menthol [Dermoplast Pain Relief 20%-0.5% [place]] 78 gm TOP ASDIRECTED PRN Docusate Sodium [Colace] 100 mg PO BID PRN Ibuprofen [Motrin] 400 mg PO Q4H PRN Ibuprofen [Motrin] 800 mg PO Q6H PRN Lanolin [Lansinoh HPA] See Dose Instructions TOP ASDIRECTED PRN bisacodyL [Dulcolax] 10 mg RECTAL ONETIME PRN oxyCODONE 5 mg PO Q2H PRN witch Yared [Tucks] 1 pad TOP ASDIRECTED PRN 02/01/20 14:58 Patient Status [ADT] Routine May Shower [RC] ASDIRECTED Up ad Lola [RC] ASDIRECTED Vital Signs [RC] PER UNIT ROUTINE Assess Lochia [WOMSER] Per Unit Routine Assess Uterine Involution [WOMSER] Per Unit Routine Peripheral IV Discontinue [OM.PC] Routine - Plan Plan:: Continue with cytotec to pitocin IOL POC.
== END 2020-02-02 17:10 | disposition home or self-care (01) | DRG 560 ==
LOC: MW.OBCHECK 00:10 → MW.OB 00:11 → MW.OBCHECK 00:21 → MW.OB 00:21 → OBSVTOIN 15:02 → MW.OB 19:30
PROVIDERS: ADMIT Obstetrics & Gynecology; ATTEND Obstetrics & Gynecology
PROC: 10E0XZZ Delivery of Products of Conception, External Approach (ICD-10-PCS; principal; 2020-02-01)
PROC: 3E0R3BZ Introduction of Anesthetic Agent into Spinal Canal, Percutaneous Approach (ICD-10-PCS; 2020-02-01)
DX: O69.81X0 Labor and delivery complicated by cord around neck, without compression, not applicable or unspecified (principal); Z3A.39 39 weeks gestation of pregnancy; Z37.0 Single live birth
CPT/HCPCS: 01967; 36415; 51702; 59025; 59409; 85014; 85018; 85027; 86592; 86593; 86850; 86900; 86901; A9270-GY; J0595; J2590; J7120